=== PATIENT | female | born 1975 | race Caucasian/White ===

== ENCOUNTER 2018-05-23 20:46 | Emergency (ER) | payer OTHER ==
[~2018-05-23] VITALS: Ht 154.9 cm; Wt 133.4 kg
[2018-05-23] MEDS ORDERED: LISINOPRIL10 MG (20:57)
[2018-05-23 21:30] LABS: ABSOLUTE BASOPHILS 0.1 thou/uL (0.0-0.2); ABSOLUTE EOSINOPHILS 0.3 thou/uL (0.0-0.7); ABSOLUTE LYMPHOCYTES 2.5 thou/uL (0.8-5.3); ABSOLUTE MONOCYTES 0.6 thou/uL (0.0-1.2); ABSOLUTE NEUTROPHILS 4.9 thou/uL (1.6-8.1); BASOPHILS 1.3 %; EOSINOPHILS 3.9 %; HEMATOCRIT 31.9 % (37.0-47.0); HEMOGLOBIN 9.6 gm/dL (12.0-15.0); LYMPHOCYTES 29.9 %; MCH 19.4 pg (26.0-34.0); MCHC 30.2 g/dL (28.0-37.0); MCV 64.3 fL (80.0-100.0); MPV 7.7 fl. (7.2-11.1); NUCLEATED RBCS 0 /100WBC; PLATELET COUNT* 370 thou/uL (150-400); POLYS 57.9 %; RBC 4.96 mil/uL (4.20-5.00); RDW-CV 19.4 % (10.5-14.5); WBC 8.5 thou/uL (4.0-11.0)
[2018-05-23 21:33] LABS: CREATININE 0.9 mg/dL (0.6-1.3); POTASSIUM 3.6 mmol/L (3.5-5.1)
[2018-05-23 21:37] LABS: ALBUMIN 3.3 g/dL (3.4-5.0); TOTAL BILIRUBIN 0.2 mg/dL (<0.1-1.0); TOTAL PROTEIN 7.1 g/dL (6.4-8.2)
[2018-05-23 22:37] LABS: URINE BILIRUBIN NEGATIVE (Negative); URINE BLOOD NEGATIVE (Negative); URINE CLARITY CLEAR; URINE COLOR YELLOW; URINE GLUCOSE-RANDOM NEGATIVE (Negative); URINE KETONES NEGATIVE (Negative); URINE LEUKOCYTES-REFLEX NEGATIVE (Negative); URINE NITRITE-REFLEX NEGATIVE (Negative); URINE PROTEIN NEGATIVE (Negative); URINE SPECIFIC GRAVITY 1.025 (1.005-1.030); URINE UROBILINOGEN 0.2 E.U./dl (0.2-1.0)
[2018-05-23 22:45] LABS: ANISOCYTOSIS 1+; HYPOCHROMASIA 2+; MICROCYTES 3+; PLATELET ESTIMATE ADEQUATE
[2018-05-23 22:52] VITALS: BP 140/74
== END 2018-05-23 22:58 | disposition home or self-care (01) ==
LOC: M.ERS 20:46
PROVIDERS: Nurse Practitioner Family
DX: R51 Headache (principal); I10 Essential (primary) hypertension; F17.210 Nicotine dependence, cigarettes, uncomplicated; Z98.890 Other specified postprocedural states

== ENCOUNTER 2019-06-24 20:11 | Emergency (ER) | payer OTHER ==
[~2019-06-24] VITALS: Ht 162.6 cm; Wt 136.1 kg
[~2019-06-24 20:11] MED LIST: ZESTRIL30 MG PO
[2019-06-24] MEDS ORDERED: ZOLOFT50 M1 PO (20:26)
[2019-06-24] MEDS ORDERED: WELLBUTRIN SR100 MG PO (20:26)
[2019-06-25] MEDS ORDERED: ZOFRAN ODT4 MG PO (00:04)
[2019-06-25] MEDS ORDERED: MOTION RELIEF25 MG PO (00:04)
[2019-06-25] MEDS ORDERED: PREDNISONE50 MG PO (00:04)
[2019-06-25 00:56] VITALS: BP 156/93
== END 2019-06-25 00:57 | disposition home or self-care (01) ==
LOC: M.ERS 20:11
DX: R42 Dizziness and giddiness (principal); I10 Essential (primary) hypertension; Z98.51 Tubal ligation status

== ENCOUNTER 2019-09-01 04:43 | Emergency (ER) | payer OTHER ==
[~2019-09-01] VITALS: Ht 162.6 cm; Wt 136.1 kg
[~2019-09-01 04:43] MED LIST changes: +MOTION RELIEF25 MG PO; +PREDNISONE50 MG PO; +WELLBUTRIN SR100 MG PO; +ZOFRAN ODT4 MG PO; +ZOLOFT50 M1 PO
[2019-09-01 05:14] LABS: INFLUENZA A ANTIGEN Negative (Negative)
[2019-09-01 05:42] LABS: ABSOLUTE BASOPHILS 0.1 thou/uL (0.0-0.2); ABSOLUTE EOSINOPHILS 0.3 thou/uL (0.0-0.7); ABSOLUTE LYMPHOCYTES 2.5 thou/uL (0.8-5.3); ABSOLUTE MONOCYTES 0.7 thou/uL (0.0-1.2); BASOPHILS 0.7 %; EOSINOPHILS 3.3 %; HEMATOCRIT 27.7 % (37.0-47.0); HEMOGLOBIN 8.7 gm/dL (12.0-15.0); LYMPHOCYTES 26.3 %; MCH 20.3 pg (26.0-34.0); MCHC 31.3 g/dL (28.0-37.0); MCV 64.9 fL (80.0-100.0); MONOCYTES 7.2 %; MPV 7.4 fl. (7.2-11.1); NUCLEATED RBCS 0 /100WBC; PLATELET COUNT* 364 thou/uL (150-400); POLYS 62.5 %; RBC 4.27 mil/uL (4.20-5.00); RDW-CV 17.9 % (10.5-14.5); WBC 9.6 thou/uL (4.0-11.0)
[2019-09-01 05:47] LABS: CALCIUM 8.4 mg/dL (8.5-10.1); POTASSIUM 3.7 mmol/L (3.5-5.1)
[2019-09-01 05:48] LABS: PROTIME 10.3 Seconds (9.20-11.50)
[2019-09-01 05:58] LABS: ALBUMIN 3.2 g/dL (3.4-5.0); TOTAL BILIRUBIN 0.2 mg/dL (<0.1-1.0); TOTAL PROTEIN 6.9 g/dL (6.4-8.2)
[2019-09-01] MEDS ORDERED: PROAIR HFA8.5 GM INH (06:33)
[2019-09-01] MEDS ORDERED: PROMETH-CODEIN 65 ML PO (06:33)
[2019-09-01] MEDS ORDERED: PREDNISONE50 MG PO (06:33)
[2019-09-01] MEDS ORDERED: TAMIFLU75 MG PO (06:33)
[2019-09-01 06:42] VITALS: BP 142/89
[2019-09-01 06:51] LABS: PLATELET ESTIMATE ADEQUATE
--- NOTE | 2019-09-01 11:17 | EKG ---
[place] [address] ELECTROCARDIOGRAM REPORT Name: KATHLEEN BULLOCK [facility] [id number] Admission: 09/01/19 Attend Phys: Discharge: 09/01/19 Date of : 71 Report #: [id number] THIS REPORT FOR: //name// [facility] ED Test Date: 2019-09-01 Test Time: 05:20:02 Pat Name: KATHLEEN BULLOCK Department: Room: Gender: F Senior Software Engineering Manager: : 1975 Requested By: Sally Richards Order Number: [id number] MD: Juanjose Stein Measurements Intervals [place] Rate: 88 P: 38 MI: 158 QRS: 0 QRSD: 69 T: 45 QT: 497 QTc: 602 Interpretive Statements Sinus rhythm LVH by voltage Borderline T abnormalities, anterior leads Prolonged QT interval No previous ECG available for comparison Electronically Signed On 09-01-2019 11:16:34 [employer]ILHEAD OPERATOR by Juanjose Stein [email or web address] <ELECTRONICALLY SIGNED> By: Juanjose Stein MD, [facility] 09/01/19 1116 0520 0520 Juanjose Stein MD, FACC /EPI
== END 2019-09-01 06:42 | disposition home or self-care (01) ==
LOC: M.ERS 04:43
PROVIDERS: Emergency Medicine
DX: J10.1 Influenza due to other identified influenza virus with other respiratory manifestations (principal); I10 Essential (primary) hypertension; Z98.51 Tubal ligation status

== ENCOUNTER 2021-07-06 11:54 | Emergency (ER) | payer OTHER ==
[~2021-07-06] VITALS: Ht 162.6 cm; Wt 141.5 kg
[~2021-07-06 11:54] MED LIST changes: +PROAIR HFA8.5 GM INH; +PROMETH-CODEIN 65 ML PO; +TAMIFLU75 MG PO
[2021-07-06 12:01] VITALS: BP 135/91
[2021-07-06] MEDS ORDERED: LIPITOR40 MG PO (12:03)
[2021-07-06] MEDS ORDERED: AMLODIPINE BESY10 MG PO (12:04)
[2021-07-06] MEDS ORDERED: ZESTRIL10 MG PO (12:04)
[2021-07-06] MEDS ORDERED: LASIX 20 MG TAB20 MG PO (12:04)
[2021-07-06] MEDS ORDERED: MOBIC7.5 MG PO (12:04)
[2021-07-06] MEDS ORDERED: MEDROXYPROGESTE10 MG PO (12:04)
== END 2021-07-06 15:48 | disposition home or self-care (01) ==
LOC: M.ERS 11:54
DX: M25.561 Pain in right knee (principal); R60.0 Localized edema; I10 Essential (primary) hypertension; E78.5 Hyperlipidemia, unspecified; Z98.51 Tubal ligation status; Z79.899 Other long term (current) drug therapy